=== PATIENT | male | born 1980 | race Hispanic/Latino ===

== ENCOUNTER 2024-01-05 18:34 | Emergency (ER) | payer SELFPAY ==
[2024-01-05 18:38] VITALS: BP 110/62; PULSE 68; RESP 16; TEMP 36.8; O2SAT 98; BMI 24.3
--- NOTE | 2024-01-05 21:54 | PC.NURSE ---
patient stated via home health travel ot that he has been having hemmoroids since September. He tried to poop on monday and has been constipated. Two days ago he has been having blood in his poop and on his toilet paper. he denies blood thinner usage.
--- NOTE | 2024-01-05 21:55 | ED.GIBLEED ---
HPI - GI Bleed General Chief complaint: GI Bleed Stated complaint: rectal bleeding and pain Time Seen by Provider: 01/05/24 20:38 Source: patient Mode of arrival: Ambulatory History of Present Illness HPI Narrative: 43-year-old male with history of alcohol use disorder, in remission last 4 months presents by private vehicle from home for bleeding from his rectum. Patient reports blood streaking in his stools as well as blood on his tissue when he wipes. Saw his primary care physician for this complaint on 01/02/2024. He states that he was referred for a colonoscopy but he has continued to have bleeding and he was concerned, prompting his visit today. Reports generalized fatigue Related Data Home Medications Medication Instructions Recorded Confirmed hydroxyzine HCl PO 01/02/24 01/02/24 Allergies Allergy/AdvReac Type Severity Reaction Status Date / Time No Known Drug Allergies Allergy Verified 01/02/24 13:07 Review of Systems Review of Systems Narrative: See HPI Patient History Medical History Internal hemorrhoids Fatigue Steatosis of liver Conjunctivitis Social History Smoking Status: Never smoker Smoking Status: Never smoker Exam Initial Vital Signs Initial Vital Signs: Vital Signs Temperature 98.2 F 01/05/24 18:38 Pulse Rate 68 01/05/24 18:38 Respiratory Rate 16 01/05/24 18:38 Blood Pressure 110/62 01/05/24 18:38 Pulse Oximetry 98 01/05/24 18:38 Oxygen Delivery Method Room Air 01/05/24 18:38 Const: Awake, alert, no acute distress, nontoxic appearing Cardiac: regular rate, regular rhythm RESP: unlabored, clear bilaterally, no wheezing GI: Soft, nontender, nondistended Rectal: Payment Processor present, no gross blood, small nonthrombosed external hemorrhoids, rectal tone intact, no gross blood, soft brown stool Skin: Warm, Dry, intact, no rashes Neuro: AO x3, CN II-XII grossly intact, moves all extremities Course Orders Ordered: ED Orders 01/05/24 22:01 CBC Auto Diff [Complete Blood Count AUTO DIFF] Stat CMP [Comprehensive Metabolic Panel] Stat Vital Signs Vital signs: Vital Signs - 8 hr 01/05/24 23:14 Pulse Rate 54 L Respiratory Rate 14 Blood Pressure 103/64 Pulse Oximetry 99 Oxygen Delivery Method Room Air MDM - GI Bleed Lab Data 01/05/24 22:01 01/05/24 22:01 Labs: Lab Results 01/05/24 Range/Units 22:01 WBC 11.5 H (4.5-11.0) X10^3/uL RBC 4.79 (4.5-5.9) X10^6/uL Hgb 14.9 (13.5-17.5) g/dL Hct 44.2 (41-53) % MCV 92.3 (80-100) fL MCH 31.1 (26-34) PG MCHC 33.7 (30-36) % RDW 14.3 (11.6-14.8) % Plt Count 247 (150-400) X10^3/uL Neut % (Auto) 52.3 (50-75) % Lymph % (Auto) 31.5 (25-40) % [place] % (Auto) 7.7 (3-14) % Eos % (Auto) 7.9 H (2-4) % Baso % (Auto) 0.6 (0-2) % Neut # (Auto) 6000 (3571-2307) /uL Lymph # (Auto) 3600 (7084-5675) /uL [place] # (Auto) 900 (0-900) /uL Eos # (Auto) 900 H (0-450) /uL Baso # (Auto) 100 (0-100) /uL Sodium 138 (137-145) mmol/L Potassium 3.9 (3.4-5.1) mmol/L Chloride 106 (98-107) mmol/L Carbon Dioxide 25 (22-32) mmol/L BUN 14 (9-20) mg/dL Creatinine 0.83 (0.66-1.25) mg/dL Estimated GFR > 60 (>60) mL/min BUN/Creatinine Ratio 16.9 (6-22) Glucose 105 H (70-100) mg/dL Calcium 9.6 (8.4-10.2) mg/dL Total Bilirubin 0.9 (0.2-1.3) mg/dL AST 24 (17-59) IU/L ALT 23 (<50) IU/L Alkaline Phosphatase 60 (38-126) U/L Total Protein 7.7 (6.3-8.2) g/dL Albumin 4.8 (3.5-5.0) g/dL Globulin 2.9 (1.7-4.1) g/dL Albumin/Globulin Ratio 1.7 (1.0-2.8) MDM Narrative Medical decision making narrative: Well-appearing patient with blood-streaked stools and occasional blood on the toilet tissue when he wipes. He was already seen his primary care physician for this complaint and he states that he has been referred for a colonoscopy. He has small nonthrombosed hemorrhoids on rectal exam, no gross blood, soft brown stool residual in rectal vault. PCP note from 1 week ago reviewed, it was noted that he likely also has small internal hemorrhoids present as well. Laboratory work is reviewed, hemoglobin 14.9, platelets 247, T bili 0.9, AST 24, ALT 23, alk phos 60. No indication for any advanced imaging or other workup at this time. Patient informed of lab findings, recommended [id number] hemorrhoid cream as needed for itching or irritation. If he was constipated he may take a laxative or stool softener such as MiraLax. I encouraged follow up for colonoscopy as previously discussed with the primary care doctor Discharge Plan Departure Patient Disposition: Home Clinical Impression: Bleeding hemorrhoids Instructions: DI for Hemorrhoids Activity Restrictions/Additional Instructions: Your laboratory work is normal. Your hemoglobin, or red blood cell count, is normal. There is no sign of infection. Follow up as your primary care doctor instructed for your colonoscopy. Prescriptions: No Action hydroxyzine HCl PO Referrals: Quentin Drew, [Primary Care Provider] - Stand Alone Forms: Patient Portal/API
[2024-01-05 22:12] LABS: Add Manual Diff / Slide Review NO; Basophils Absolute Auto 100 /uL (0-100); Basophils Percent Auto 0.6 % (0-2); Eosinophils Absolute Auto 900 /uL (0-450); Eosinophils Percent Auto 7.9 % (2-4); Hematocrit 44.2 % (41-53); Hemoglobin 14.9 g/dL (13.5-17.5); Lymphocytes Absolute Auto 3600 /uL (1100-4500); Lymphocytes Percent Auto 31.5 % (25-40); Mean Corpuscular HGB Conc 33.7 % (30-36); Mean Corpuscular Hemoglobin 31.1 PG (26-34); Mean Corpuscular Volume 92.3 fL (80-100); Monocytes Absolute Auto 900 /uL (0-900); Monocytes Percent Auto 7.7 % (3-14); Neutrophils Absolute Auto 6000 /uL (1500-7000); Neutrophils Percent Auto 52.3 % (50-75); Platelet Count 247 X10^3/uL (150-400); Red Blood Cell Count 4.79 X10^6/uL (4.5-5.9); Red Cell Distribution Width 14.3 % (11.6-14.8); White Blood Cell Count 11.5 X10^3/uL (4.5-11.0)
[2024-01-05 22:33] LABS: Alanine Aminotransferase 23 IU/L (<50); Albumin 4.8 g/dL (3.5-5.0); Albumin Globulin Ratio 1.7 (1.0-2.8); Alkaline Phosphatase 60 U/L (38-126); Aspartate Aminotransferase 24 IU/L (17-59); BUN Creatinine Ratio 16.9 (6-22); Bilirubin Total 0.9 mg/dL (0.2-1.3); Blood Urea Nitrogen 14 mg/dL (9-20); Calcium 9.6 mg/dL (8.4-10.2); Carbon Dioxide 25 mmol/L (22-32); Chloride 106 mmol/L (98-107); Estimated Glomerular Filt Rate > 60 mL/min (>60); Globulin 2.9 g/dL (1.7-4.1); Glucose 105 mg/dL (70-100); HEMOLYSIS 31 (0-50); Potassium 3.9 mmol/L (3.4-5.1); Sodium 138 mmol/L (137-145); Total Protein 7.7 g/dL (6.3-8.2)
[2024-01-05 23:14] VITALS: BP 103/64; PULSE 54; RESP 14; O2SAT 99
== END 2024-01-05 23:17 | disposition home or self-care (01) ==
PROVIDERS: Emergency Provider Emergency Medicine; PCP Family Medicine
DX: K64.9 Unspecified hemorrhoids (principal)
CPT/HCPCS: 36415; 80053; 85025; 99282; 99283

== ENCOUNTER → 2024-02-19 09:28 | Outpatient (CLI) | payer SELFPAY ==
[2024-02-19 10:33] LABS: Add Manual Diff / Slide Review NO; Basophils Absolute Auto 100 /uL (0-100); Basophils Percent Auto 0.7 % (0-2); Eosinophils Absolute Auto 400 /uL (0-450); Eosinophils Percent Auto 5.5 % (2-4); Hematocrit 47.7 % (41-53); Hemoglobin 16.2 g/dL (13.5-17.5); Lymphocytes Absolute Auto 1800 /uL (1100-4500); Lymphocytes Percent Auto 22.5 % (25-40); Mean Corpuscular Hemoglobin 31.4 PG (26-34); Mean Corpuscular Volume 92.4 fL (80-100); Monocytes Absolute Auto 500 /uL (0-900); Monocytes Percent Auto 5.9 % (3-14); Neutrophils Absolute Auto 5100 /uL (1500-7000); Neutrophils Percent Auto 65.4 % (50-75); Platelet Count 236 X10^3/uL (150-400); Red Blood Cell Count 5.16 X10^6/uL (4.5-5.9); Red Cell Distribution Width 14.1 % (11.6-14.8); White Blood Cell Count 7.8 X10^3/uL (4.5-11.0)
[2024-02-19 10:36] LABS: Appearance Urine UA CLEAR; Bilirubin Urine UA NEGATIVE (NEGATIVE); Color Urine UA YELLOW; Glucose Urine UA NEGATIVE (Negative); Ketones Urine UA NEGATIVE (NEGATIVE); Leukocyte Esterase Urine UA NEGATIVE (NEGATIVE); Nitrite Urine UA NEGATIVE (Negative); Occult Blood Urine UA NEGATIVE (Negative); Protein Urine UA NEGATIVE (Negative); Urobilinogen Urine UA 0.2 E.U./dL (0.2)
[2024-02-19 10:42] LABS: Alanine Aminotransferase 28 IU/L (<50); Albumin 4.6 g/dL (3.5-5.0); Albumin Globulin Ratio 1.7 (1.0-2.8); Alkaline Phosphatase 57 U/L (38-126); Aspartate Aminotransferase 22 IU/L (17-59); BUN Creatinine Ratio 20.9 (6-22); Bilirubin Total 0.6 mg/dL (0.2-1.3); Blood Urea Nitrogen 19 mg/dL (9-20); Calcium 9.6 mg/dL (8.4-10.2); Carbon Dioxide 27 mmol/L (22-32); Chloride 106 mmol/L (98-107); Estimated Glomerular Filt Rate > 60 mL/min (>60); Globulin 2.7 g/dL (1.7-4.1); Glucose 102 mg/dL (70-100); HEMOLYSIS < 15 (0-50); Potassium 4.2 mmol/L (3.4-5.1); Sodium 138 mmol/L (137-145); Total Protein 7.3 g/dL (6.3-8.2)
[2024-02-19 10:44] LABS: Bacteria Urine Occasional (0-1); Culture Indicated Urine Cult Not Indicated; RBC Urine 0-1/HPF (0-5/HPF); Squamous Epithelial Cell Urine 0-1 /HPF (0-5/HPF); Urine Volume 10mL (spun); WBC Urine 0-1/HPF (0-5/HPF)
[2024-02-19 10:54] LABS: Free T3, Triiodothyronine Free 3.03 pg/mL (2.77-5.27); Free T4, Direct Thyroxine 0.79 ng/dL (0.78-2.19)
[2024-02-19 11:08] LABS: Thyroid Stimulating Hormone 1.59 uIU/mL (0.47-4.68)
[2024-02-19 11:27] LABS: Creatinine Urine Random 97.87 mg/dL
[2024-02-19 11:31] LABS: Microalbumin Urine Random < 0.6 mg/dL (0-1.6)
== END ==
PROVIDERS: PCP Family Medicine; Referring Provider Nurse Practitioner; Visit Provider Nurse Practitioner
DX: R53.83 Other fatigue (principal); R35.0 Frequency of micturition; L29.9 Pruritus, unspecified; D72.829 Elevated white blood cell count, unspecified; K12.2 Cellulitis and abscess of mouth; R82.998 Other abnormal findings in urine
CPT/HCPCS: 36415; 80053; 81001; 82043; 82570; 84439; 84443; 84481; 85025

== ENCOUNTER → 2024-02-29 15:52 | Outpatient (CLI) | payer SELFPAY ==
--- NOTE | 2024-03-04 16:24 | DIET.OUTPTC ---
Dietary Outpatient Consultation Note Consultation Date: 03/04/2024 Assessment: 43 y M referred to dietitian for steatosis of liver, constipation/hemorrhoids, and dietary counseling and surveillance. Translation services offered. Preference is for to translate. Nura has stopped drinking alcohol at the beginning of this year and has drastically changed diet in efforts to improve liver function. Reports eliminating sweets/junk food and reducing carbohydrates (tortillas). Has been adding some of these foods back into diet recently (tortillas 1-2). Experienced a 28 lb loss in 6 months. Is wanting help to gain back muscle mass and alleviate constipation. 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 Reports bowel movements have improved, but can still be compacted/difficult to pass. Has had success with implementation of 1-2 prunes/day. Diet recall: 25-35 g fiber/day Ht: 5 ft 6 in Wt: 150 lb BMI: 24.2 Weight History: 02/19/24: 68.039 kg 16% weight loss within 6 months, severe 01/02/24: 68.549 kg 12/07/23: 70.307 kg Sep 2023 pt reports: 80.91 kg Nutrition focused physical exam performed: Mild loss temporalis, clavicle region, interosseous Moderate loss quadriceps, gastrocnemius Mild loss buccal and orbital fat pads Nutrition Diagnosis: 1. Inadequate protein intake r/t nutrition related knowledge deficit aeb diet recall with only 1 significant source of protein per day (4 oz fish or poultry) 2. Moderate acute protein calorie malnutrition r/t inadequate oral intake in setting of nutrition related knowledge deficit as evidenced by 16% weight loss in 6 months, severe, mild-moderate muscle loss (temporalis, deltoid, pectoralis, trapezius, interosseous, quadriceps, gastrocnemius) and mild subcutaneous fat loss (buccal and orbital fat pads) Interventions: 1. Increase protein-energy intake -Discussed balanced meals, protein sources, protein-energy needs, results from [facility] 2. Fiber modification -Consistent 35 g fiber/day, additional prunes prn Goals: 1. Additional protein: -Add 20-25 g of protein at breakfast with protein powder scoop or with 3 eggs -Extra 1/2 to 1 serving of poultry/fish at dinner -Yogurt as needed for snack -Tortilla at dinner as desired (2-3) to support CHO needs 2. Eat protein portion first r/t early satiety EER: 4515-4189 (1500 MSJ baseline x1.4-1.5 vs. 25-30 kcals/kg) 85 g protein (1.25 g protein/kg per PCM, fatty liver) Monitoring/Evaluations: diet recall, goals, weight, labs, [facility]PE f/u in 2 months Electronically Signed by: Ambar Caro 03/04/24 16:24 Clinical Dietitian [address] [address]
== END ==
LOC: DIET 15:52
PROVIDERS: PCP Family Medicine; Referring Provider Family Medicine
DX: K76.0 Fatty (change of) liver, not elsewhere classified (principal); K59.00 Constipation, unspecified; K64.9 Unspecified hemorrhoids; Z71.3 Dietary counseling and surveillance; Z68.24 Body mass index [BMI] 24.0-24.9, adult; E44.0 Moderate protein-calorie malnutrition
CPT/HCPCS: 97802

== ENCOUNTER 2024-03-08 11:34 | Day surgery (SDC) | payer SELFPAY ==
[2024-03-08 11:48] VITALS: BP 134/75; PULSE 79; RESP 18; TEMP 37.4; O2SAT 98
[2024-03-08] MEDS: LACTATED RINGERS 1,000 ML 42 ML IV (11:59)
--- NOTE | 2024-03-08 12:45 | PM.HP.1 ---
History of Present Illness History of Present Illness Date Patient Seen: 03/08/24 Time Patient Seen: 12:45 Chief complaint: Dx Colonoscopy w/banding Narrative: 43-year-old man with rectal bleeding here for diagnostic colonoscopy and hemorrhoidal banding. No interval change in health. Please refer to the H& P from January 2024 for further detail. [facility] Medical History Decreased hearing of left ear Internal hemorrhoids Fatigue Steatosis of liver Conjunctivitis Family History Father Hyperlipidemia Mother Diabetes mellitus Hypertension Anxiety Brother Diabetes mellitus Social History marital status: number of children: 4 household members: spouse and children occupational status: employed Smoking Status: Never smoker alcohol intake: former substance use type: does not use Meds Home Medications and Allergies Home Medications Medication Instructions Recorded Confirmed Type hydroxyzine HCl 25 mg tablet 25 mg PO QID PRN itching #60 tabs 02/19/24 02/19/24 Rx nystatin 100,000 unit/mL oral 500,000 unit (5 mL) buccal QID 10 02/19/24 03/08/24 Rx suspension days #200 mL Allergies Allergy/AdvReac Type Severity Reaction Status Date / Time No Known Drug Allergies Allergy Verified 02/19/24 09:03 Exam Vital Signs (past 8 hours): - 03/08/24 11:48 Temperature 99.4 F Pulse Rate 79 Respiratory Rate 18 Blood Pressure 134/75 Pulse Oximetry 98 Oxygen Delivery Method Room Air Oxygen Delivery Method Room Air Narrative Exam Narrative: General adult man alert oriented no acute distress Chest nonlabored respiration Extremities warm well perfused Assessment & Plan Assessment & Plan narrative: 43-year-old man with rectal bleeding here for diagnostic colonoscopy and hemorrhoidal banding. Overview of the procedure discussed. Procedural risks including hemorrhage, missed diagnosis, intestinal injury, were reviewed. Questions have been answered he is in agreement with this plan provides his written and verbal consent to proceed. Time-Based Coding :: [TOTAL MINUTES] spent with patient and on the chart (including review of chart, obtaining history, exam, reviewing outside data, placing orders, documenting exam and treatment plan, and counseling patient) on [DATE].
[2024-03-08 13:15] VITALS: BP 101/64; PULSE 61; RESP 14; O2SAT 98
[2024-03-08 13:20] VITALS: BP 108/72; PULSE 71; RESP 12; TEMP 36.1; O2SAT 96
--- NOTE | 2024-03-08 13:23 | P.OP.COLON_ITS ---
Operative Date/Time/Diagnoses Date of procedure: 03/08/24 Time of procedure: 13:23 Pre-op diagnosis: Rectal bleeding Procedure & Clinicians Study performed: Diagnostic colonoscopy Internal hemorrhoidal banding Same procedure as scheduled: Yes Indications: 43-year-old man with intermittent rectal bleeding Surgeon: Tony Cardenas Procedure Notes Procedure in detail: The history and physical was performed/updated and the patient is ASA class is 2. The procedure was discussed in detail with the patient. Potential risks complications including infection, bleeding, missed diagnosis, perforation, need for surgery, and were explained. Their questions were answered and informed consent was obtained. Patient was brought to the procedure room and placed standard monitoring equipment. The patient's vital signs were monitored continuously throughout the entire procedure. Prior to starting time-out was performed. The patient was placed in the left lateral recumbent position. Procedural sedation was administered by anesthesia. Examination began with a thorough inspection of the perianal area there was no evidence of fissures, fistulae, external hemorrhoids or cutaneous malignancy. The colonoscopy scope was then placed into the anal canal and was advanced to the cecum, which was identified by the ileocecal valve, the appendiceal orifice and the confluence of the taenia. The scope was then slowly withdrawn examining colon thoroughly in all directions, irrigating it of any residual stool. The scope was retroflexed within the rectum The patient tolerated the procedure well. They will be discharged once criteria are met. The prep was of good/excellent quality. The withdrawl time was 7 minutes. FINDINGS * Internal hemorrhoids grade 2 * Diverticulosis Following completion of the endoscopy the internal hemorrhoids were banded. Anoscope was placed. The right posterior and left lateral pedicles were each grasped with the suction ligated and then doubly ligated at their base. He tolerated the procedure well. Specimen(s): none sent Impression: Diverticulosis, internal hemorrhoids Post-procedure Recommendations: Colonoscopy in 10 years and High fiber diet Disposition: same day surgery
[2024-03-08 13:25] VITALS: BP 105/71; PULSE 71; RESP 14; O2SAT 97
[2024-03-08 13:28] VITALS: BP 104/66; PULSE 63; RESP 13; TEMP 36.1; O2SAT 97
[2024-03-08] MEDS: KETOROLAC 30 MG/ML VIAL 15 MG IV (13:38)
== END 2024-03-08 13:55 | disposition home or self-care (01) ==
PROVIDERS: PCP Family Medicine; Referring Provider Surgery; Visit Provider Surgery
PROC: 0DJD8ZZ Inspection of Lower Intestinal Tract, Via Natural or Artificial Opening Endoscopic (ICD-10-PCS; CPT 45378; principal; 2024-03-08 12:30)
DX: K62.5 Hemorrhage of anus and rectum (principal); K64.8 Other hemorrhoids; K57.30 Diverticulosis of large intestine without perforation or abscess without bleeding
CPT/HCPCS: 45378; J1885; J2704